=== PATIENT | male | born 1960 | race Caucasian/White ===

== ENCOUNTER 2019-12-31 13:16 | Outpatient (RCR) | payer SELFPAY ==
[~2019-12-31] VITALS: Ht 177 cm; Wt 91.8 kg
[2019-12-31 13:35] VITALS: BP 103/64
[2019-12-31 13:59] LABS: BASOPHILS % (AUTO) 0 % (0-10); EOSINOPHILS # (AUTO) 0.1 10^3/uL (0.0-0.3); EOSINOPHILS % (AUTO) 1 % (0-10); HEMATOCRIT 46 % (40-54); HEMOGLOBIN 15.6 G/DL (13.3-17.7); LYMPHOCYTES # (AUTO) 0.6 X 10^3 (1.0-4.0); LYMPHOCYTES % (AUTO) 10 % (12-44); MEAN CORPUSCULAR HEMOGLOBIN 30 PG (25-34); MEAN CORPUSCULAR HGB CONC 34 G/DL (32-36); MEAN CORPUSCULAR VOLUME 88 FL (80-99); MONOCYTES # (AUTO) 0.1 X 10^3 (0.0-1.0); MONOCYTES % (AUTO) 2 % (0-12); NEUTROPHILS # (AUTO) 5.4 X 10^3 (1.8-7.8); NEUTROPHILS % (AUTO) 87 % (42-75); PLATELET COUNT 278 10^3/uL (130-400); RED CELL DISTRIBUTION WIDTH 13.3 % (10.0-14.5); WHITE BLOOD COUNT 6.2 10^3/uL (4.3-11.0)
[2019-12-31 14:13] LABS: BUN/CREATININE RATIO 14; CALCIUM 9.5 MG/DL (8.5-10.1); CARBON DIOXIDE 27 MMOL/L (21-32); CHLORIDE 101 MMOL/L (98-107); CREATININE SERUM 0.88 MG/DL (0.60-1.30); GFR ESTIMATED > 60; GLUCOSE 137 MG/DL (70-105); SODIUM 137 MMOL/L (135-145)
--- NOTE | 2019-12-31 14:21 | Diagnostic Imaging Report ---
INDICATION: Preop. TIME OF EXAM: 02:15 p.m. COMPARISON: No prior studies are available for comparison. FINDINGS: The heart size is normal. The pulmonary vascularity is unremarkable. The lungs are clear. No infiltrate, effusion or pneumothorax is detected. IMPRESSION: No acute cardiopulmonary process is detected. Dictated by: Dictated on workstation # [id number]
[2019-12-31 14:35] LABS: EOSINOPHILS % (MANUAL) 1 %; LYMPHOCYTES % (MANUAL) 8 %; MONOCYTES % (MANUAL) 6 %; NEUTROPHILS % (MANUAL) 85 %; RBC MORPH NORMAL
[2020-01-01] MEDS ORDERED: ASCO10006 PO (11:27)
[2020-01-01] MEDS ORDERED: BENA1TAB15 PO (11:27)
[2020-01-01] MEDS ORDERED: MULT-1056 PO (11:27)
[2020-01-01] MEDS ORDERED: SAW/1TAB2 PO (11:27)
[2020-01-01] MEDS ORDERED: TMSL.4C PO (11:27)
[2020-01-01] MEDS ORDERED: CHOL500050 PO (11:27)
[2020-01-01] MEDS ORDERED: FLUT1AER4 IH (11:28)
[2020-01-03] MEDS ORDERED: HYDR-83 PO (12:45)
[2020-01-03] MEDS ORDERED: PRD20T PO (12:54)
[2020-01-03] MEDS ORDERED: AMOX-355 PO (12:54)
== END 2019-12-31 15:45 | disposition home or self-care (01) ==
LOC: PREOP 13:16
PROVIDERS: ATTEND Otolaryngology Otolaryngology/Facial Plastic Surgery
DX: Z01.812 Encounter for preprocedural laboratory examination (principal); Z01.810 Encounter for preprocedural cardiovascular examination; Z01.811 Encounter for preprocedural respiratory examination; Z11.59 Encounter for screening for other viral diseases
CPT/HCPCS: 36415; 71046; 80048; 85007; 85027; 87081; 87635; 93005